=== PATIENT | male | born 1960 | race Caucasian/White ===

== ENCOUNTER 2016-12-15 21:33 | Emergency (ER) | payer OTHER ==
[~2016-12-15 21:33] MED LIST: ACULAR10 ML OP; AMOXICILLIN500 M1 PO; CIPRO PO; GENTAMICIN SULFA5 ML OP; HYCODAN PO; IBUPROFEN800 MG PO; MOTRIN400 MG PO; NO MEDICATIONS; NORCO 5/325 TAB1 TAB PO; PHENERGAN PO; PYRIDIUM PO; VICODIN 5/1 TAB 5/50 PO; ZITHROMAX PO; ZYRTEC10 M2 PO
== END 2016-12-15 21:49 | disposition home or self-care (01) ==
LOC: CFTX 21:33
DX: S39.012A Strain of muscle, fascia and tendon of lower back, initial encounter (principal); F17.210 Nicotine dependence, cigarettes, uncomplicated; W22.8XXA Striking against or struck by other objects, initial encounter; Y92.009 Unspecified place in unspecified non-institutional (private) residence as the place of occurrence of the external cause
CPT/HCPCS: 96372; 99283; J1885

== ENCOUNTER 2017-01-06 21:16 | Emergency (ER) | payer OTHER | END 2017-01-06 22:40 | disposition home or self-care (01) | LOC: CFTX 21:16 | DX: S05.02XA Injury of conjunctiva and corneal abrasion without foreign body, left eye, initial encounter (principal); F17.210 Nicotine dependence, cigarettes, uncomplicated; Z23 Encounter for immunization; X58.XXXA Exposure to other specified factors, initial encounter; Y92.009 Unspecified place in unspecified non-institutional (private) residence as the place of occurrence of the external cause | CPT/HCPCS: 90471; 90715; 99283 ==

== ENCOUNTER 2017-01-14 11:42 | Emergency (ER) | payer OTHER | END 2017-01-14 11:50 | disposition home or self-care (01) | LOC: CED 11:42 | DX: M25.50 Pain in unspecified joint (principal); F17.200 Nicotine dependence, unspecified, uncomplicated | CPT/HCPCS: 96372; 99283; J1885 ==

== ENCOUNTER 2017-02-07 10:52 | Emergency (ER) | payer OTHER ==
--- NOTE | ~2017-02-07 | US85 ---
[facility] A Service [facility] RADIOLOGY TEXT RESULTS PATIENT: MARE CH LOCATION: [facility] : 64 UNIT #: [id number] AGE: [address]: NINOSKA GILMAN SEX: M ORDER DR: [id number] [facility] [address] [place], [place] [address] [id number] E MR#: [id number] Acc #: [id number] NAME: MARE CH : 1960 SEX: M STUDY DATE/TIME: 02/07/2017 12:09 UNIT: [id number] ROOM: STUDY DESCRIPTION: [facility] or [facility] Stdy Attending Physician: Ninoska Gilman Aprn Ordering Physician: Ninoska Gilman Aprn Primary Care Physician: Primary Care Physician No MEDICAL IMAGING REPORT This report is preliminary unless electronic signature is present EXAM Left leg vein Doppler 02/07 INDICATIONS Pain and swelling in the leg that started this morning. TECHNIQUE Venous ultrasound examination of the left lower extremity was performed using grayscale, spectral Doppler and color flow Doppler imaging. FINDINGS The examination is negative. There is no evidence of left lower extremity deep venous thrombus from the groin to the lower calf. Visualized greater saphenous vein is also patent. IMPRESSION Negative examination. No evidence of left lower extremity deep venous thrombosis. Dictated by... Osmani Zimmerman Jr., M.D. THIS IS AN ELECTRONICALLY VERIFIED REPORT Osmani Zimmerman Jr., M.D. at 02/07/2017 4:48 PM BETHEL/elissa TD: 02/07/2017 13:09 JOB #: [id number] MEDICAL IMAGING REPORT [facility] A Service [facility] RADIOLOGY TEXT RESULTS PATIENT: MARE CH LOCATION: [facility] : 64 UNIT #: [id number] AGE: [address]: GILMAN,NINOSKA G SEX: M ORDER DR: Page 1 of 1 COPY
[2017-02-07 11:41] LABS: BASOPHIL# 0.1 X10e3 (0-0.3); BASOPHIL% 0.8 % (0-2.5); DIFF IND NO; EOSINOPHIL# 0.3 X10e3 (0-0.7); EOSINOPHIL% 4.1 % (0.0-7.0); HEMATOCRIT 43.6 % (38.0-50.0); HEMOGLOBIN 14.7 gm/dL (13.0-16.0); LYMPHOCYTE# 1.9 X10e3 (1.0-3.5); LYMPHOCYTE% 28.8 % (17.0-45.0); MEAN CELL VOLUME 97.3 FL (83-96); MEAN CORPUSCULAR HEMOGLOBIN 32.8 PG (28-34); MEAN CORPUSCULAR HGB CONC 33.8 g/dL (30-36); MEAN PLATELET VOLUME 7.6 FL (6.5-11.5); MONOCYTE# 0.5 X10e3 (0-1.0); MONOCYTE% 7.1 % (3.0-12.0); NEUTROPHIL# 3.8 X10e3 (1.5-7.1); NEUTROPHIL% 59.2 % (40-75); PLATELET COUNT 147 X10e3 (140-420); RED BLOOD COUNT 4.49 X10e (3.90-5.60); WHITE BLOOD COUNT 6.5 X10e3 (4.0-10.5)
[2017-02-07 12:09] LABS: BILIRUBIN,TOTAL 0.8 mg/dL (0.2-2.0); CALCIUM SERUM 9.1 mg/dL (8.4-10.2); CREATININE SERUM 0.8 mg/dL (0.6-1.4); GLOM FILT RATE Estimated 101.3 mL/min (>60); POTASSIUM 4.5 mmol/L (3.5-5.1); PROTEIN TOTAL SERUM 7.3 g/dL (6.0-8.3)
== END 2017-02-07 13:10 | disposition home or self-care (01) ==
LOC: CFTX 10:52 → CED 10:52 → CFTX 11:11
PROVIDERS: Nurse Practitioner Family
DX: M25.572 Pain in left ankle and joints of left foot (principal); F17.210 Nicotine dependence, cigarettes, uncomplicated
CPT/HCPCS: 36415; 80053; 82150; 83690; 85025; 93971; 99284

== ENCOUNTER 2017-02-09 12:21 | Emergency (ER) | payer OTHER ==
--- NOTE | ~2017-02-09 | CR151 ---
[facility] A Service of [facility] RADIOLOGY TEXT RESULTS PATIENT: MARE CH LOCATION: [facility] : 64 UNIT #: [id number] AGE: [address]: Wendy Hurst SEX: M ORDER DR: [id number] [facility] [address] [place], [place] [address] [id number] E MR#: [id number] Acc #: [id number] NAME: MARE CH : 1960 SEX: M STUDY DATE/TIME: 02/09/2017 13:29 UNIT: [facility] ROOM: STUDY DESCRIPTION: CR Hip Min 2 Views Rt Attending Physician: Wendy Hurst P.A.-C. Ordering Physician: Wendy Hurst P.A.-C. Primary Care Physician: No Primary Care Physician MEDICAL IMAGING REPORT This report is preliminary unless electronic signature is present EXAM Right hip. INDICATION Right hip pain after trauma today. The patient fell on curb, 02/09/2017. COMPARISON 03/23/2016. TECHNIQUE AP view of the pelvis and lateral view of the right hip were obtained. FINDINGS The bones are normal. There is no degenerative change. IMPRESSION Normal AP pelvis and right hip. Dictated by... Randal Hand M.D. THIS IS AN ELECTRONICALLY VERIFIED REPORT Randal Hand M.D. at 02/09/2017 4:55 PM FEL/gz TD: 02/09/2017 14:57 JOB #: [id number] MEDICAL IMAGING REPORT Page 1 of 1 COPY
== END 2017-02-09 14:20 | disposition home or self-care (01) ==
LOC: CED 12:21 → CFTX 12:21
DX: S76.011A Strain of muscle, fascia and tendon of right hip, initial encounter (principal); F17.210 Nicotine dependence, cigarettes, uncomplicated; W20.8XXA Other cause of strike by thrown, projected or falling object, initial encounter; Y92.410 Unspecified street and highway as the place of occurrence of the external cause
CPT/HCPCS: 73502; 99283

== ENCOUNTER 2017-02-26 14:42 | Emergency (ER) | payer OTHER ==
--- NOTE | ~2017-02-26 | CT4 ---
[facility] A Service of [facility] RADIOLOGY TEXT RESULTS PATIENT: MARE CH LOCATION: [facility] : 64 UNIT #: [id number] AGE: [address]: Karen Meléndez MD SEX: M ORDER DR: [id number] [place] [id number] [facility]. [place], [place] [address] [id number] E MR#: [id number] Acc #: [id number] NAME: MARE CH : 1960 SEX: M STUDY DATE/TIME: 02/26/2017 17:22 UNIT: [facility] ROOM: STUDY DESCRIPTION: CT Abd and Pelv Wo Cont Attending Physician: Karen Meléndez M.D. Ordering Physician: Karen Meléndez M.D. MEDICAL IMAGING REPORT This report is preliminary unless electronic signature is present EXAM CT scan of the abdomen and pelvis without contrast, 02/26/2017 HISTORY Left side abdominal pain for 2 days, worsening today. Evaluate for obstructing renal calculus. TECHNIQUE Spiral CT was performed through the abdomen and pelvis without oral or intravenous contrast administration using renal stone protocol. This CT exam was performed with one or more of the following radiation dose reduction techniques: automatic exposure control, adjustment of mA and/or kV according to patient size, and iterative reconstruction. FINDINGS ABDOMEN: There is no obstructing renal or ureteral calculus. The liver, spleen, pancreas and adrenal glands are normal. Small gallstones are seen within the gallbladder lumen. There is no intra or extrahepatic biliary ductal dilatation. PELVIS FINDINGS: The gut, mesenteric and sheila structures are normal. There is no free fluid in the abdomen or pelvis. The lung bases are normal. IMPRESSION 1. No obstructing renal or ureteral calculus. 2. Cholelithiasis. Dictated by... [facility] A Service [facility] RADIOLOGY TEXT RESULTS PATIENT: MARE CH LOCATION: [facility] : 64 UNIT #: [id number] AGE: [address]: Karen Meléndez MD SEX: M ORDER DR: Sandoval Sanchez M.D. THIS IS AN ELECTRONICALLY VERIFIED REPORT Sandoval Sanchez M.D. at 02/27/2017 2:10 PM GAGANDEEP/rohini TD: 02/27/2017 03:18 JOB #: [id number] MEDICAL IMAGING REPORT Page 1 of 1 COPY
[2017-02-26 15:39] LABS: URINE SOURCE CLEAN CATCH
[2017-02-26 15:46] LABS: BASOPHIL# 0.1 X10e3 (0-0.3); BASOPHIL% 1.5 % (0-2.5); DIFF IND NO; EOSINOPHIL# 0.3 X10e3 (0-0.7); EOSINOPHIL% 4.4 % (0.0-7.0); HEMATOCRIT 43.6 % (38.0-50.0); HEMOGLOBIN 14.6 gm/dL (13.0-16.0); LYMPHOCYTE# 2.5 X10e3 (1.0-3.5); LYMPHOCYTE% 37.1 % (17.0-45.0); MEAN CELL VOLUME 98.1 FL (83-96); MEAN CORPUSCULAR HEMOGLOBIN 32.9 PG (28-34); MEAN CORPUSCULAR HGB CONC 33.6 g/dL (30-36); MEAN PLATELET VOLUME 7.7 FL (6.5-11.5); MONOCYTE# 0.6 X10e3 (0-1.0); MONOCYTE% 9.3 % (3.0-12.0); NEUTROPHIL# 3.2 X10e3 (1.5-7.1); NEUTROPHIL% 47.7 % (40-75); PLATELET COUNT 178 X10e3 (140-420); RED BLOOD COUNT 4.45 X10e (3.90-5.60); RED CELL DISTRIBUTION WIDTH 13.1 % (11.0-15.5); WHITE BLOOD COUNT 6.8 X10e3 (4.0-10.5)
[2017-02-26 15:51] LABS: URINE APPEARANCE CLEAR; URINE BILIRUBIN NEG (NEG); URINE BLOOD NEG (NEG); URINE COLOR YELLOW; URINE GLUCOSE NEG (NEG); URINE KETONE TRACE (NEG); URINE LEUKOCYTE ESTERASE NEG (NEG); URINE NITRATE NEG (NEG); URINE PH 5.5 (5-8); URINE PROTEIN TRACE (NEG); URINE SPECIFIC GRAVITY 1.026 (1.003-1.035)
[2017-02-26 15:55] LABS: CULTURE INDICATED? NO
[2017-02-26 16:01] LABS: ALBUMIN SERUM 4.1 g/dL (3.5-5.0); BILIRUBIN, DIRECT 0.2 mg/dL (0.0-0.2); BILIRUBIN,INDIRECT 0.5 mg/dL (0.0-0.9); BILIRUBIN,TOTAL 0.7 mg/dL (0.2-2.0); BUN/CREATININE RATIO 12.72; CALCIUM SERUM 9.2 mg/dL (8.4-10.2); CREATININE SERUM 1.1 mg/dL (0.6-1.4); GLOM FILT RATE Estimated 75.7 mL/min (>60); POTASSIUM 5.1 mmol/L (3.5-5.1); PROTEIN TOTAL SERUM 7.5 g/dL (6.0-8.3)
== END 2017-02-26 18:15 | disposition home or self-care (01) ==
LOC: CED 14:42
DX: R10.9 Unspecified abdominal pain (principal); F17.210 Nicotine dependence, cigarettes, uncomplicated
CPT/HCPCS: 36415; 74176; 80048; 80076; 81003; 83690; 85025; 99284

== ENCOUNTER 2017-05-17 13:22 | Emergency (ER) | payer OTHER ==
[~2017-05-17] VITALS: Ht 177.8 cm; Wt 76.7 kg
== END 2017-05-17 14:20 | disposition home or self-care (01) ==
LOC: CFTX 13:22 → CED 13:22 → CFTX 13:49
DX: J06.9 Acute upper respiratory infection, unspecified (principal)
CPT/HCPCS: 87651; 99283